=== PATIENT | female | born 1985 | race Caucasian/White ===

== ENCOUNTER 2016-10-07 00:53 | Emergency (ER) | payer BC, SELFPAY ==
[~2016-10-07 00:53] MED LIST: DOXY-LEMMON100 M PO; FETZIMA80 MG PO; NATAZIA 28 TAB1 EACH PO; ULTRAM50 MG PO; VITAMIN D-50000 IU/C PO
[2016-10-07] MEDS ORDERED: ESTRADIOL VALERATE PO (01:11)
[2016-10-07] MEDS ORDERED: [UNRECOGNIZED DRUG - OTHER] PO (01:11)
[2016-10-07] MEDS ORDERED: METHYLFOLATE (01:12)
[2016-10-07] MEDS ORDERED: MAGNESIUM OXID400 M1 PO (01:21)
[2016-10-07 01:24] LABS: URINE BILIRUBIN NEGATIVE (NEG); URINE BLOOD LARGE (NEG); URINE GLUCOSE (UA) NEGATIVE (NEG); URINE KETONE SMALL (NEG); URINE LEUKOCYTE ESTERASE NEGATIVE (NEG); URINE NITRITE NEGATIVE (NEG); URINE PROTEIN SMALL (NEG)
[2016-10-07 01:42] LABS: URINE APPEARANCE HAZY; URINE COLOR YELLOW
[2016-10-07 01:43] LABS: BASO % 0.4 % (0-2); EOS % 1.1 % (0-7); EOSINOPHIL ABSOLUTE COUNT 0.1 tho/cmm (0.0-0.7); HCT-HEMATOCRIT 36.9 % (34.0-49.0); HGB-HEMOGLOBIN 13.1 gm/dl (12.0-15.5); IMMATURE GRANULOCYTES ABSOLUTE 0.02 tho/cmm (0-0.03); IMMATURE GRANULOCYTES PERCENT 0.3 % (0-0.3); LYMPH % 32.7 % (20-45); LYMPH ABSOLUTE COUNT 2.6 tho/cmm (0.8-4.5); MCH (MEAN CORPUSCULAR HGB) 30.5 pg (28.0-32.0); MCHC MEAN CORPUSCULAR HGB CONC 35.5 % (32.0-36.0); MEAN PLATELET VOLUME 9.1 cmc (9.4-12.4); MONO % 8.4 % (0-12); MONOCYTE ABSOLUTE COUNT 0.7 tho/cmm (0.0-1.2); NEUTROPHIL ABSOLUTE COUNT 4.5 tho/cmm (1.6-8.0); NEUTROPHIL-AUTOMATED 4.5 tho/cmm (1.6-8.0); NEUTROPHILS % 57.1 % (40-80); PLATELET COUNT 271 tho/cmm (150-450); RED BLOOD COUNT 4.29 mil/cmm (4.00-5.20); RED CELL DISTRIBUTION WIDTH 12.5 % (12.4-16.4)
[2016-10-07 01:44] LABS: URINE BACTERIA 1+; URINE MUCUS 3+; URINE RBC 50-60 /[HPF] (0-5); URINE WBC 0-3 /[HPF] (0-5)
[2016-10-07 01:56] LABS: ANION GAP 10 mmol/L (0-20); BLOOD UREA NITROGEN 13 mg/dl (6-24); CALCIUM 8.4 mg/dl (8.5-10.5); CARBON DIOXIDE-VENOUS 26 mmol/L (22-32); CHLORIDE 107 mmol/l (96-110); CREATININE 0.96 mg/dl (0.50-1.10); GLUCOSE 112 mg/dL (70-110); POTASSIUM 3.9 mmol/L (3.7-5.1); SODIUM 139 mmol/L (135-145); eGFR VALUE FOR BLACK >90 mL/Min
[2016-10-07 02:02] LABS: PREGNANCY-SERUM NEGATIVE (NEGATIVE)
[2016-10-07] MEDS ORDERED: FLOMAX0.4 M1 PO (03:36)
[2016-10-07] MEDS ORDERED: ZOFRAN4 M2 PO (03:36)
[2016-10-07] MEDS ORDERED: NORCO 5/3251 TAB PO (03:36)
[2016-10-07] MEDS ORDERED: CIPRO500 M2 PO (03:36)
== END 2016-10-07 04:30 ==
LOC: EDMED 00:53
PROVIDERS: Emergency Medicine
DX: N13.2 Hydronephrosis with renal and ureteral calculous obstruction (principal); N39.0 Urinary tract infection, site not specified; F41.9 Anxiety disorder, unspecified; F32.9 Major depressive disorder, single episode, unspecified; Z87.442 Personal history of urinary calculi; Z88.0 Allergy status to penicillin; Z79.899 Other long term (current) drug therapy
CPT/HCPCS: J1885; J2270; J2405; J7030

== ENCOUNTER 2016-10-12 20:19 | Emergency (ER) | payer BC, SELFPAY ==
[~2016-10-12 20:19] MED LIST changes: +CIPRO500 M2 PO; +ESTRADIOL VALERATE PO; +FLOMAX0.4 M1 PO; +MAGNESIUM OXID400 M1 PO; +METHYLFOLATE; +NORCO 5/3251 TAB PO; +ZOFRAN4 M2 PO; +[UNRECOGNIZED DRUG - OTHER] PO
[2016-10-12] MEDS ORDERED: CIPRO500 M2 PO (20:57)
[2016-10-12] MEDS ORDERED: NORCO 5-325 TA1 EACH PO (20:58)
[2016-10-12] MEDS ORDERED: ZOFRAN4 M2 PO (20:59)
[2016-10-12] MEDS ORDERED: FLOMAX0.4 M1 PO (20:59)
[2016-10-12 21:52] LABS: BASO % 0.2 % (0-2); EOS % 1.5 % (0-7); EOSINOPHIL ABSOLUTE COUNT 0.2 tho/cmm (0.0-0.7); HCT-HEMATOCRIT 39.1 % (34.0-49.0); HGB-HEMOGLOBIN 14.2 gm/dl (12.0-15.5); IMMATURE GRANULOCYTES ABSOLUTE 0.03 tho/cmm (0-0.03); IMMATURE GRANULOCYTES PERCENT 0.3 % (0-0.3); LYMPH % 28.1 % (20-45); LYMPH ABSOLUTE COUNT 2.8 tho/cmm (0.8-4.5); MCH (MEAN CORPUSCULAR HGB) 31.1 pg (28.0-32.0); MCHC MEAN CORPUSCULAR HGB CONC 36.3 % (32.0-36.0); MCV (MEAN CELL VOLUME) 85.7 fl (82.0-96.0); MEAN PLATELET VOLUME 9.4 cmc (9.4-12.4); MONO % 6.7 % (0-12); MONOCYTE ABSOLUTE COUNT 0.7 tho/cmm (0.0-1.2); NEUTROPHIL ABSOLUTE COUNT 6.3 tho/cmm (1.6-8.0); NEUTROPHIL-AUTOMATED 6.3 tho/cmm (1.6-8.0); NEUTROPHILS % 63.2 % (40-80); PLATELET COUNT 275 tho/cmm (150-450); RED BLOOD COUNT 4.56 mil/cmm (4.00-5.20); RED CELL DISTRIBUTION WIDTH 12.4 % (12.4-16.4); WHITE BLOOD COUNT 9.9 tho/cmm (4.0-10.0)
[2016-10-12 22:17] LABS: URINE BILIRUBIN NEGATIVE (NEG); URINE BLOOD MODERATE (NEG); URINE GLUCOSE (UA) NEGATIVE (NEG); URINE KETONE NEGATIVE (NEG); URINE LEUKOCYTE ESTERASE NEGATIVE (NEG); URINE NITRITE NEGATIVE (NEG); URINE PROTEIN NEGATIVE (NEG)
[2016-10-12 22:26] LABS: URINE APPEARANCE CLEAR; URINE COLOR YELLOW
[2016-10-12 22:38] LABS: URINE EPITHELIAL CELLS RARE /[HPF] (0-10); URINE WBC RARE /[HPF] (0-5)
== END 2016-10-12 23:41 ==
LOC: EDMED 20:19
PROVIDERS: Physician Assistant
DX: N20.0 Calculus of kidney (principal); Z90.89 Acquired absence of other organs
CPT/HCPCS: J2270; J2405; J7030